=== PATIENT | male | born 1980 | race Caucasian/White ===

== ENCOUNTER → 2017-08-01 | Outpatient (CLI) | payer BC ==
--- NOTE | 2017-08-01 14:45 | XR ---
EXAMINATION TYPE: XR knee complete LT DATE OF EXAM: 08/01/2017 CLINICAL HISTORY: Left knee pain. TECHNIQUE: Three views of the left knee are obtained. COMPARISON: None. FINDINGS: There is no acute fracture/dislocation evident in left knee. The tri-compartment joint sp aces appear within normal limits. The overlying soft tissue appears unremarkable. IMPRESSION: Unremarkable study.
== END | disposition home or self-care (01) ==
LOC: RADXRYALE 14:23
PROVIDERS: ATTEND Physician Assistant Medical
DX: M25.562 Pain in left knee (principal)